=== PATIENT | female | born 1960 | race Caucasian/White ===

== ENCOUNTER 2020-08-30 08:46 | Emergency (ER) | payer OTHER ==
[~2020-08-30] VITALS: Ht 162.6 cm; Wt 79.5 kg
--- NOTE | 2020-08-30 09:10 | PHYS DOC ---
Past History Past Medical History: Cancer, Diabetes, Hypertension Past Surgical History: Cholecystectomy, , Hysterectomy, Other Additional Past Surgical Histo: left masectomy Alcohol Use: None General Adult EDM: Chief Complaint: WEAKNESS/GENERALIZED HPI: HPI: 60-year-old female presents with right hand numbness and weakness. 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 She feels like the overall sensation in all 5 fingers is less than normal. She has not had this before. She also has been feeling m ore off balance and having a little bit of stumbling. She denies weakness or numbness in her legs. Her who accompanies her felt like her stumbling this morning was worse than last night so they decided to come to the ER. She has not had any slurred speech. She is able to move all 4 extremities. She has had no medication changes, no new medications. She has had no other symptoms of illness. She denies fever or chills. Review of Systems: Review of Systems: Constitutional: Denies fever or chills Eyes: Denies change in visual acuity HENT: Denies nasal congestion or sore throat Respiratory: Denies cough or shortness of breath Cardiovascular: Denies chest pain or edema GI: Denies abdominal pain, nausea, vomiting, bloody stools or diarrhea : Denies dysuria Musculoskeletal: Denies back pain or joint pain Integument: Denies rash Neurologic: Decreased right hand vocational horticulture instructor strength, numbness, decreased balance with gait Endocrine: Denies polyuria or polydipsia Lymphatic: Denies swollen glands Psychiatric: Denies depression or anxiety Allergies: Allergies: Allergies Uncoded Allergies Type Severity Reaction Last Updated Verified SULFAS Allergy Unknown 08/30/20 Physical Exam: PE: Constitutional: Well developed, well nourished, obese, no acute distress, non- toxic appearance. [] HENT: Normocephalic, atraumatic, bilateral external ears normal, oropharynx moist, no oral exudates, nose normal. [] Eyes: PERRLA, EOMI, conjunctiva normal, no discharge. [] Neck: Normal range of motion, no tenderness, supple, no stridor. [] Cardiovascular: Heart rate regular rhythm, no murmur [] Lungs & Thorax: Bilateral breath sounds clear to auscultation [] Abdomen: Bowel sounds normal, soft, no tenderness, no masses, no pulsatile masses. [] Skin: Warm, dry, no erythema, no rash. [] Back: No tenderness, no CVA tenderness. [] Extremities: No tenderness, no cyanosis, no clubbing, ROM intact, no edema. [] Neurologic: Alert and oriented X 3, normal motor function, normal sensory function, no focal deficits noted. [] Psychologic: Affect normal, judgement normal, mood normal. [] Current Patient Data: Vital Signs: Vital Signs Date Time Temp Pulse Resp B/P (MAP) Pulse Ox O2 Delivery O2 Flow Rate FiO2 08/30/20 08:58 97.7 71 18 163/87 (112) 98 Room Air EKG: EKG: [] Radiology/Procedures: Radiology/Procedures: [] Impressions: XR CHEST 1V History: Reason: weakness / Spl. Instructions: / History: Comparison: None. Findings: No consolidation or pleural effusion. Normal heart size. No pneumothorax. Linear density projecting over the right upper chest potentially external to the patient. Impression: 1. No acute cardiopulmonary process. Electronically signed by: Gene Hurst DO (08/30/2020 9:52 AM) [id number] DICTATED AND SIGNED BY: GENE HURST DO DATE: 08/30/20 0942 CC: NIVIA BUNN DO; GABRIELA LOPEZ ~MTH0 0 CT HEAD/BRAIN WO History: Reason: numbness right hand / Spl. Instructions: / History: Comparison: None. Technique: Noncontrast CT imaging was performed of the head. Exposure: One or more of the following individualized dose reduction techniques were utilized for this examination: 1. Automated exposure control 2. Adjustment of the mA and/or kV according to patient size 3. Use of iterative reconstruction technique. Findings: No intracranial hemorrhage. No mass effect. No hydrocephalus. Mild foci of decreased attenuation within the hemispheric white matter, most often due to chronic microvascular ischemia. Small left frontal scalp lipoma measures 1.5 x 0.3 cm. Imaged orbits are unremarkable. Imaged paranasal sinuses and mastoid air cells are clear. No acute calvarial fracture. Impression: 1. No acute intracranial abnormality. Electronically signed by: Gene Hurst DO (08/30/2020 11:08 AM) [id number] DICTATED AND SIGNED BY: GENE HURST DO DATE: 08/30/20 1102 CC: NIVIA BUNN DO; GABRIELA LOPEZ ~MTH0 0 Heart Score: C/O Chest Pain: N/A Risk Factors: Risk Factors: DM, Current or recent (<one month) smoker, HTN, HLP, family history of CAD, obesity. Risk Scores: Score 0 - 3: 2.5% MACE over next 6 weeks - Discharge Home Score 4 - 6: 20.3% MACE over next 6 weeks - Admit for Clinical Observation Score 7 - 10: 72.7% MACE over next 6 weeks - Early Invasive Strategies Course & Med Decision Making: Course & Med Decision Making Pertinent Labs and Imaging studies reviewed. (See chart for details) The patient's labs are unremarkable except for some slightly elevated liver enzymes. Her chest x-ray is negative for acute findings. Her EKG is negative for acute findings. Her troponin is negative. Her head CT is negative for acute findings. The patient's symptoms are transient. This could be a TIA. I have advised that she follow-up with her primary care physician to discuss f urther lab work-up and consideration of MRI if necessary. She is stable for discharge at this time. [] Dragon Disclaimer: Dragon Disclaimer: This electronic medical record was generated, in whole or in part, using a voice recognition dictation system. Departure Departure: Impression: Primary Impression: Hand numbness Additional Impression: Gait disturbance Disposition: 01 HOME / SELF CARE / HOMELESS Condition: STABLE Referrals: GABRIELA LOPEZ (PCP) Patient Instructions: Transient Ischemic Attack, [id number] NIVIA BUNN DO Aug 30, 2020 09:10
[2020-08-30 09:33] LABS: BASO % 1 % (0-3); EOS # 0.3 x10^3/uL (0.0-0.7); EOS % 3 % (0-3); HEMATOCRIT 43.4 % (36.0-47.0); HEMOGLOBIN 14.9 g/dL (12.0-15.5); LYMPH # 2.7 x10^3/uL (1.0-4.8); LYMPH % 31 % (24-48); MEAN CORPUSCULAR HEMOGLOBIN 31 pg (25-35); MEAN CORPUSCULAR HGB CONC 34 g/dL (31-37); MEAN CORPUSCULAR VOLUME 90 fL (79-100); MONO # 0.7 x10^3/uL (0.0-1.1); MONO % 8 % (0-9); NEUT % 58 % (31-73); PLATELET COUNT 222 x10^3/uL (140-400); RED BLOOD COUNT 4.82 x10^6/uL (3.50-5.40); RED CELL DISTRIBUTION WIDTH 12.9 % (11.5-14.5); WHITE BLOOD COUNT 8.6 x10^3/uL (4.0-11.0)
[2020-08-30 09:35] LABS: CREATININE 0.7 mg/dL (0.6-1.0); GFR 85.4; POTASSIUM 3.9 mmol/L (3.5-5.1)
[2020-08-30 09:41] LABS: ALBUMIN 3.6 g/dL (3.4-5.0); TOTAL BILIRUBIN 0.3 mg/dL (0.2-1.0); TOTAL PROTEIN 7.3 g/dL (6.4-8.2)
--- NOTE | 2020-08-30 09:54 | RAD ---
XR CHEST 1V History: Reason: weakness / Spl. Instructions: / History: Comparison: None. Findings: No consolidation or pleural effusion. Normal heart size. No pneumothorax. Linear density projecting over the right upper chest potentially external to the patient. Impression: 1. No acute cardiopulmonary process. Electronically signed by: Kendrick Bernard DO (08/30/2020 9:52 AM) [id number]
--- NOTE | 2020-08-30 09:59 | EKG ---
[address] [address] Test Date: 2020-08-30 Test Time: 09:12:42 Pat Name: EFREN HUNT Department: Room: Gender: F Credit Operations Specialist: : [id number] Requested By: NIVIA BUNN Order Number: [id number] Reading MD: Measurements Intervals [place] Rate: 67 P: 32 MN: 180 QRS: -10 QRSD: 74 T: 3 QT: 396 QTc: 421 Interpretive Statements SINUS RHYTHM LEFTWARD AXIS QRS(T) CONTOUR ABNORMALITY CONSISTENT WITH INFERIOR INFARCT AGE UNDETERMINED ABNORMAL ECG RI6.02 No previous ECG available for comparison
[2020-08-30 10:41] LABS: BILIRUBIN,URINE NEG (NEG); CLARITY,URINE CLEAR; COLOR,URINE YELLOW; GLUCOSE,URINE NEG (NEG); NITRITE,URINE NEG (NEG); UROBILINOGEN,URINE 0.2 mg/dL (0.2 mg/dL)
[2020-08-30 10:44] LABS: BACTERIA,URINE 0 /HPF (0-FEW); RBC,URINE OCC /HPF (0-2); SQUAMOUS EPITHELIAL CELL,UR FEW /LPF; WBC,URINE OCC /HPF (0-4)
--- NOTE | 2020-08-30 11:11 | RAD ---
CT HEAD/BRAIN WO History: Reason: numbness right hand / Spl. Instructions: / History: Comparison: None. Technique: Noncontrast CT imaging was performed of the head. Exposure: One or more of the following individualized dose reduction techniques were utilized for thi s examination: 1. Automated exposure control 2. Adjustment of the mA and/or kV according to patient size 3. Use of iterative reconstruction technique. Findings: No intracranial hemorrhage. No mass effect. No hydrocephalus. Mild foci of decreased attenuation within the hemispheric white matter, most often due to chronic cristal rovascular ischemia. Small left frontal scalp lipoma measures 1.5 x 0.3 cm. Imaged orbits are unremarkable. Imaged paranasal sinuses and mastoid air cells are clear. No acute ca lvarial fracture. Impression: 1. No acute intracranial abnormality. Electronically signed by: Kendrick Bernard DO (08/30/2020 11:08 AM) [id number]
[2020-08-30 11:43] VITALS: BP 149/83
== END 2020-08-30 11:36 | disposition home or self-care (01) ==
LOC: ER 08:46
DX: R20.0 Anesthesia of skin (principal); R26.9 Unspecified abnormalities of gait and mobility; R74.8 Abnormal levels of other serum enzymes; I10 Essential (primary) hypertension; E11.9 Type 2 diabetes mellitus without complications; Z90.49 Acquired absence of other specified parts of digestive tract; Z90.710 Acquired absence of both cervix and uterus
CPT/HCPCS: 36415; 70450; 71045; 80053; 81001; 84484; 85025; 93005; 99285-25